=== PATIENT | female | born 1985 | race Caucasian/White ===

== ENCOUNTER → 2019-03-01 | Outpatient (CLI) | payer OTHER ==
[~2019-03-01] MED LIST: IBUP800 PO; LEVSOD25 PO; MULVITMINE PO; ONDA4 PO; Percocet 5-3251 EACH PO
== END | disposition home or self-care (01) ==
LOC: LAB 12:00 → LAB SHORT 12:00
DX: R11.0 Nausea (principal)
CPT/HCPCS: 87086

== ENCOUNTER 2020-01-19 07:42 | Day surgery (SDC) | payer OTHER ==
[~2020-01-19] VITALS: Ht 160 cm; Wt 71.2 kg
[~2020-01-19 07:42] MED LIST changes: +Adipex-P37.5 MG PO
--- NOTE | 2020-01-19 09:03 | NUR ---
01/19/20 0903 Jeanne Rai PATIENT AND NOTIFIED OF DELAY DUE TO PRIOR CASE RUNNING LONG. PATIENT IS COMFORTABLE AND HAS NO NEEDS AT THIS TIME
--- NOTE | 2020-01-19 10:43 | NUR ---
01/19/20 1043 Sánchez Caceres RIGHT CHEEK AREA PREPPED WITH NACL & IODINE SOLUTION 1:1. LEFT ARM AREA PREPPED WITH CHORA PREP.
== END 2020-01-19 11:50 | disposition home or self-care (01) ==
LOC: ORSCSDS 07:42
PROVIDERS: Otolaryngology
PROC: 0JBH0ZX Excision of Left Lower Arm Subcutaneous Tissue and Fascia, Open Approach, Diagnostic (ICD-10-PCS; principal; 2020-01-19 09:00)
PROC: 0JB10ZX Excision of Face Subcutaneous Tissue and Fascia, Open Approach, Diagnostic (ICD-10-PCS; principal; 2020-01-19 09:00)
PROC: 0JQH0ZZ Repair Left Lower Arm Subcutaneous Tissue and Fascia, Open Approach (ICD-10-PCS; principal; 2020-01-19 09:00)
PROC: 0JQ10ZZ Repair Face Subcutaneous Tissue and Fascia, Open Approach (ICD-10-PCS; principal; 2020-01-19 09:00)
DX: L72.0 Epidermal cyst (principal); D17.22 Benign lipomatous neoplasm of skin and subcutaneous tissue of left arm
CPT/HCPCS: 88304; J0171; J1100; J2250; J2405; J2704; J3010; J7120

== ENCOUNTER → 2020-11-24 | Outpatient (CLI) | payer OTHER | LOC: LAB 11:40 → LAB SHORT 11:40 | DX: L08.9 Local infection of the skin and subcutaneous tissue, unspecified (principal) | CPT/HCPCS: 87070; 87205 ==

== ENCOUNTER 2021-04-05 20:11 | Emergency (ER) | payer OTHER ==
[~2021-04-05] VITALS: Ht 160 cm; Wt 72.6 kg
[2021-04-05] MEDS ORDERED: Norco 5-325 Ta1 EACH PO (20:43)
== END 2021-04-05 20:50 | disposition home or self-care (01) ==
LOC: ER 20:11
DX: K04.7 Periapical abscess without sinus (principal); K03.81 Cracked tooth; K02.9 Dental caries, unspecified; E03.9 Hypothyroidism, unspecified; Z88.0 Allergy status to penicillin; Z88.5 Allergy status to narcotic agent; Z79.899 Other long term (current) drug therapy
CPT/HCPCS: 99283; A9270

== ENCOUNTER 2022-11-21 14:59 | Emergency (ER) | payer OTHER ==
[~2022-11-21] VITALS: Ht 165.1 cm; Wt 72.6 kg
[~2022-11-21 14:59] MED LIST changes: +Norco 5-325 Ta1 EACH PO
[2022-11-21 15:04] VITALS: BP 134/83
[2022-11-21 19:56] LABS: Source, Urine Voided
[2022-11-21 20:02] LABS: Bilirubin, Urine Neg (Neg); Blood, Urine 2+ (Neg); Glucose Qualitative, Urine Neg (Neg); Ketones, Urine 3+ (Neg); Leukocyte Esterase, Urine Neg (Neg); Nitrite, Urine Neg (Neg); Protein, Urine Neg (Neg); Specific Gravity, Urine 1.025 (1.003-1.022); Urobilinogen, Urine NORM (Normal)
[2022-11-21 20:14] LABS: BASOPHILS ABSOLUTE AUTO 0.04 K/mm3 (0.00-0.23); BASOPHILS PERCENT AUTO 1 % (0-2); EOSINOPHILS PERCENT AUTO 3 % (0-6); Hematocrit 40.6 % (33.0-51.0); Hemoglobin 13.9 g/dL (11.5-16.0); IMMATURE GRAN ABSOLUTE AUTO 0.02 K/mm3 (0.00-0.10); IMMATURE GRAN PERCENT AUTO 0 % (0-1); LYMPHOCYTES ABSOLUTE AUTO 2.46 K/mm3 (0.84-5.20); LYMPHOCYTES PERCENT AUTO 34 % (21-46); MONOCYTES ABSOLUTE AUTO 0.51 K/mm3 (0.16-1.47); MONOCYTES PERCENT AUTO 7 % (4-13); Mean Corpuscular HGB 32.7 pg (26.0-34.0); Mean Corpuscular HGB Conc 34.2 g/dL (31.5-36.5); Mean Corpuscular Volume 96 fL (80-100); Mean Platelet Volume 9.9 fL (9.1-12.4); NEUTROPHILS PERCENT AUTO 55 % (41-73); Platelet Count 276 K/mm3 (150-400); RDW Standard Deviation 46.3 fL (35.1-46.3); Red Blood Cell Count 4.25 M/mm3 (3.80-5.20); White Blood Cell Count 7.23 K/mm3 (4.00-11.30)
[2022-11-21 20:29] LABS: Appearance, Urine Clear (Clear); Color, Urine Yellow (P-Yellow)
[2022-11-21 20:31] LABS: Amorphous Mod (0-Heavy); Bacteria Rare /hpf; Red Blood Cells, Urine 0-2 /hpf (0-2); Squamous Epithelial Cells Few /hpf (Few); White Blood Cells, Urine Not Seen /hpf (0-5)
[2022-11-21 20:47] LABS: Albumin, Blood 4.2 g/dL (3.4-5.0); Albumin/Globulin Ratio 1.3 (0.8-1.8); Bilirubin, Total 0.5 mg/dL (0.1-1.0); Bun/Creatinine Ratio 26.2 (12.0-20.0); Calcium, Blood 9.1 mg/dL (8.5-10.1); Creatinine, Blood 0.46 mg/dL (0.40-1.00); Globulin, Blood 3.2 g/dL (2.2-4.0); Potassium, Blood 3.8 mmol/L (3.5-5.5); Total Protein, Blood 7.4 g/dL (6.4-8.2)
== END 2022-11-21 21:23 | disposition home or self-care (01) ==
LOC: ER 14:59
PROVIDERS: Student in an Organized Health Care Education/Training Program
DX: R51.9 Headache, unspecified (principal); R11.2 Nausea with vomiting, unspecified; E03.9 Hypothyroidism, unspecified; Z88.0 Allergy status to penicillin; Z88.5 Allergy status to narcotic agent; Z79.899 Other long term (current) drug therapy
CPT/HCPCS: 70450; 80053; 81001; 84703; 85025; 96361; 96374; 96375; 99284-25; J1200; J1885; J2765; J7030

== ENCOUNTER 2024-11-19 10:11 | Day surgery (SDC) | payer OTHER ==
[~2024-11-19] VITALS: Ht 160 cm; Wt 79.5 kg
[~2024-11-19 10:11] MED LIST changes: +Bupivacaine 0.5% W/EPI 1:200000 SDV 30 ML Vial ONE; +Dexamethasone Sod Phos 10 MG/ML 1ML VIAL ONE; +Dexmedetomidine HCL 200 MCG / 2 ML ONE; +Ketorolac Tromethamine 30mg Vial ONE; +Metoclopramide HCl 5MG / ML 2ML Vial ONE; +Ondansetron HCl 2 MG / ML 2ML Vial ONE; +Ropivacaine 0.5% HCL/PF 5 MG/ML 30ML Vial ONE
[2024-11-19] MEDS ORDERED: HYDROmorphone HCl/Pf 1MG SYR ONE (10:18)
[2024-11-19] MEDS ORDERED: EUTHYROX50 MC1 PO (10:37)
[2024-11-19] MEDS ORDERED: ZOLPIDEM TART12.5 MG (10:38)
[2024-11-19] MEDS ORDERED: CeFAZolin Sodium 2,000 MG VIAL ONE (10:45)
--- NOTE | 2024-11-19 10:50 | NUR ---
11/19/24 1050 Katarina Enrique 1035: PATIENT IN ROOM AND VITALS STARTED
[2024-11-19] MEDS ORDERED: DiphenhydrAMINE HCl 50 MG/ML 1ML Vial ONE (11:19)
--- NOTE | 2024-11-19 11:27 | NUR ---
11/19/24 1127 Ashlee Murphy DID CHLORAPREP AND JAMI SANTOS PREPPED WITH ALCOHOL
--- NOTE | 2024-11-19 12:08 | NUR ---
11/19/24 1208 Shereen Smith REPORT RECEIVED FROM DANIEL AND RN. PT ASLEEP UPON ARRIVAL. VSS. 6L NRB ON, O2 SATS 100%. LEFT LEG ELEVATED. BED PLACED IN [place]
[2024-11-19 12:47] VITALS: BP 117/68
== END 2024-11-19 13:04 | disposition home or self-care (01) ==
LOC: ORSCSDS 10:11
PROVIDERS: Podiatrist Foot & Ankle Surgery
PROC: 0LQP0ZZ Repair Left Lower Leg Tendon, Open Approach (ICD-10-PCS; principal; 2024-11-19 11:30)
DX: M76.72 Peroneal tendinitis, left leg (principal); E03.9 Hypothyroidism, unspecified; E66.9 Obesity, unspecified; Z68.31 Body mass index [BMI] 31.0-31.9, adult; Z79.899 Other long term (current) drug therapy
CPT/HCPCS: A6253; A9270; J0165; J0690; J1100; J1171; J1200; J1885; J2405; J2704; J2765; J2795; J7120